=== PATIENT | male | born 1980 | race African-American/Black ===

== ENCOUNTER 2022-03-13 05:01 | Emergency (ER) | payer MEDICARE, MEDICAID ==
[~2022-03-13] VITALS: Ht 167.6 cm; Wt 90.9 kg
[2022-03-13 06:35] VITALS: BP 145/89
== END 2022-03-13 06:36 ==
LOC: ER 05:02
DX: F10.129 Alcohol abuse with intoxication, unspecified (principal); Y90.8 Blood alcohol level of 240 mg/100 ml or more
CPT/HCPCS: 99283

== ENCOUNTER 2022-04-27 19:21 | Emergency (ER) | payer MEDICARE, MEDICAID ==
[~2022-04-27] VITALS: Ht 170.2 cm; Wt 75.9 kg
[~2022-04-27 19:21] MED LIST: DIVA500T9 PO; TRAZ-256 PO; ZIPR20CA12 PO
[2022-04-27 22:54] LABS: URINE AMPHETAMINE SCREEN NEGATIVE (Neg); URINE BARBITUATE SCREEN NEGATIVE (Neg); URINE BENZODIAZEPINES SCREEN NEGATIVE (Neg); URINE CANNABINOID SCREEN POSITIVE (Neg); URINE COCAINE SCREEN NEGATIVE (Neg); URINE METHADONE SCREEN NEGATIVE (Neg); URINE OPIATE SCREEN NEGATIVE (Neg); URINE PHENCYCLIDINE SCREEN NEGATIVE (Neg)
--- NOTE | 2022-04-27 23:01 | NUR ---
Documented assessment reviewed, underwriter mortgage loan agrees with this previous assessment.
[2022-04-27 23:28] LABS: BASOPHILS % (AUTO) 0.4 % (0-1); EOSINOPHILS % (AUTO) 0.2 % (0-6); HEMATOCRIT 38.5 % (42.0-52.0); HEMOGLOBIN 12.8 g/dl (14.0-17.9); LYMPHOCYTES # (AUTO) 2.2 X10'3 (1.1-4.8); LYMPHOCYTES % (AUTO) 25.2 % (21-51); MEAN CORPUSCULAR HEMOGLOBIN 29.2 PG (27.0-31.0); MEAN CORPUSCULAR HGB CONC 33.2 g/dL (33.0-36.5); MEAN CORPUSCULAR VOLUME 87.9 FL (78-98); MEAN PLATELET VOLUME 6.4 FL (7.4-10.4); MONOCYTES # (AUTO) 0.5 X10'3 (0-0.9); MONOCYTES % (AUTO) 6.2 % (2-12); NEUTROPHILS # (AUTO) 5.8 X10'3 (1.8-7.7); PLATELET COUNT 298 X10'3 (140-440); RED BLOOD COUNT 4.38 X10'6 (4.70-6.10); RED CELL DISTRIBUTION WIDTH 13.9 % (11.5-14.5); WHITE BLOOD COUNT 8.6 X10'3 (4.5-11.0)
[2022-04-27 23:41] LABS: ALANINE AMINOTRANSFERASE 32 U/L (12-78); ALBUMIN 3.5 G/DL (3.4-5.0); ALBUMIN/GLOBULIN RATIO 1.1 (1.1-1.5); ALKALINE PHOSPHATASE 63 IU/L (46-116); ANION GAP 6 (8-16); ASPARTATE AMINO TRANSFERASE 19 U/L (10-37); BILIRUBIN,TOTAL 0.3 MG/DL (0.1-1.0); BLOOD UREA NITROGEN 13 MG/DL (7-18); BUN/CREATININE RATIO 11.8 (5.4-32.0); CALCIUM 8.8 MG/DL (8.5-10.1); CHLORIDE 105 MMOL/L (99-107); GLUCOSE 115 MG/DL (70-104); POTASSIUM 3.7 MMOL/L (3.5-5.1); SODIUM 138 MMOL/L (135-145); TOTAL CARBON DIOXIDE 26.8 MMOL/L (24-32); TOTAL PROTEIN 6.8 G/DL (6.4-8.2); eGFR 89 ML/MIN
[2022-04-27 23:52] LABS: ETHANOL < 0.010 GM/DL (0.0-0.010)
--- NOTE | 2022-04-28 05:48 | NUR ---
PT HAD THE CURTAIN CLOSED. CURTAIN WAS OPENED AND PT WAS REMINDED OF THE NEED TO KEEP THE CURTAINS OPEN.
--- NOTE | 2022-04-28 05:57 | NUR ---
pt is on [employer]. he appears to be talking to himself. no apparent needs at this time.
--- NOTE | 2022-04-28 06:45 | NUR ---
Pt resting with eyes closed laying on left side, effortless respirations observed.
[2022-04-28] MEDS ORDERED: ZIPR80CA10 PO (07:56)
[2022-04-28] MEDS ORDERED: TRAZ150T78 PO (07:56)
[2022-04-28] MEDS ORDERED: DIVA-81 PO (07:56)
[2022-04-28] MEDS ORDERED: DIVA500T9 PO (07:56)
--- NOTE | 2022-04-28 08:50 | NUR ---
Pt eating breakfast tray.
--- NOTE | 2022-04-28 11:25 | NUR ---
Pt had taken mattress off gurney and placed on floor. Gurney taken out of room and mattress with linen in room with pt.
--- NOTE | 2022-04-28 11:30 | NUR ---
Keyboard taken out of room as pt placed on ground and using as peddle on top of floor faucet peddles.
--- NOTE | 2022-04-28 11:36 | NUR ---
Pt abulated to restroom with field contact technician.
--- NOTE | 2022-04-28 12:00 | NUR ---
Pt seen by [facility] and [facility] will be continued.
--- NOTE | 2022-04-28 18:30 | NUR ---
PT RESTING IN BED WITH THE GURNEY MATTRESS ON THE FLOOR.
--- NOTE | 2022-04-28 19:30 | NUR ---
PT AMBULATING TO THE BATHROOM WITH SITTER. PT FOLLOWING DIRECTION.
--- NOTE | 2022-04-28 21:00 | NUR ---
PT STANDING UP IN THE ROOM MUMBLING TO HIMSELF. PT REQUIRING REMINDERS FROM SITTER TO STAY IN HIS ROOM.
--- NOTE | 2022-04-28 23:00 | NUR ---
PT ASLEEP ON GURNEY MATTRESS ON THE FLOOR. PT DOES NOT APPEAR TO BE IN DISTRESS. RESPIRATIONS ARE EQUAL AND UNLABORED.
--- NOTE | 2022-04-29 01:57 | NUR ---
PT CONTINUES TO SLEEP ON MATTRESS.
--- NOTE | 2022-04-29 03:05 | NUR ---
Previous assessment reviewed, marketing copywriter agrees with documented assessment.
--- NOTE | 2022-04-29 03:30 | NUR ---
PT IS AWAKE AND WALKED TO THE BATHROOM WITH SITTER. PT RETURNED TO HIS ROOM AND IS NOW TAKING ALL OF THE SHEETS OFF OF HIS MATTRESS. PT ATTEMPTED TO DISROBE BUT FOLLOWED INSTRUCTIONS TO PULL HIS PANTS BACK UP.
--- NOTE | 2022-04-29 05:49 | NUR ---
PT IS CURRENTLY SITTING IN THE CORNER OF HIS ROOM AND YELLING AT VISUAL HALLUCINATIONS. THE PT IS VERY AGGITATED AND VIOLENT. ANY INTERACTION WITH THE PT LEADS TO FURTHER AGGITATION AND UNDIRECTABLE BEHAVIORS. IF THE PTS DOORS ARE ATTEMPTED TO BE OPENED HE WILL BEGIN YELLING ATTEMPTING TO LEAVE THE ROOM. NO VITALS WERE ABLE TO BE OBTAINED ON THIS SHIFT, DUE TO AGGITATION WITH ATTEMPT.
--- NOTE | 2022-04-29 06:57 | NUR ---
Pt currently sleeping comfortably with his face covered w/blanket. Pt laying on a mattress on the floor.
[2022-04-29] MEDS ORDERED: traZODone 150mg tablet PO PRN (07:25)
--- NOTE | 2022-04-29 07:45 | NUR ---
Pt given coffee, juice, milk and grahm crackers till breakfast tray arrives.
--- NOTE | 2022-04-29 08:47 | NUR ---
Pt remains calm and cooperative.
--- NOTE | 2022-04-29 14:49 | NUR ---
Patient's mother visiting him. Patient remain calm at this time.
--- NOTE | 2022-04-29 16:00 | NUR ---
Pt sitting on mattress, pt occasionally gets up and walks about in room. Pt asks to smoke and reminded pt of policy and offered to get order for nicotine patch which pt declines.
--- NOTE | 2022-04-29 17:13 | NUR ---
Pt ambulated to bathroom and back to room. Pt given pitcher of ice water and currently without needs. Pt remains calm and cooperative.
--- NOTE | 2022-04-29 18:22 | NUR ---
Patient awake at this time, requesting beverage, otherwise no other needs verbalized. Patient calm at this time.
--- NOTE | 2022-04-29 19:37 | NUR ---
Patient given various beverages per request. PAtient in jovial mood. No distress. Patient frequently at door interacting with staff, demenous is positive, no inappopriate behavior noted.
--- NOTE | 2022-04-29 20:28 | NUR ---
Wound to right finger cleansed and dressed.
--- NOTE | 2022-04-29 20:39 | NUR ---
Patient given vaseline for lips as requested. Patient denies other needs, patient remains calm and cooperative.
[2022-04-29] MEDS ORDERED: ziprasidone 20mg capsule PO SCH (21:00)
[2022-04-29] MEDS ORDERED: divalproex sodium 500mg tablet.DR PO SCH (21:00)
--- NOTE | 2022-04-29 22:39 | NUR ---
Al from [facility] called in at this time. SPoke with marketing writer. DEtailed report was give at this time and facility will be accepting patient at their facility after 07 on 04/30, Dr. Kc will be the accepting provider. Facility is: [facility] [address] [place] [address] [facility] [id number] Updates should be called to [phone] Receiving facility will arrange transport via their liason.
--- NOTE | 2022-04-29 23:55 | NUR ---
Patient awake, up to RR at this time. Patient requesting warm beverage, this is being prepared at this time.
--- NOTE | 2022-04-30 02:30 | NUR ---
Patient asleep on mattress at this time. No distress noted.
--- NOTE | 2022-04-30 02:59 | NUR ---
Patient awake, up to RR at this time without incident. Patient states he wants a meal tray. Patient informed cafeteria is closed. Patient was given a sandwich.
--- NOTE | 2022-04-30 04:06 | NUR ---
Patient awake at this time, patient informed he is going to [facility]. Patient verbalizes understanding. Patient wants another beverage. THis was provided.
--- NOTE | 2022-04-30 05:24 | NUR ---
Patient is asleep at this time. NO distress noted. BReathing even unlabored.
--- NOTE | 2022-04-30 06:37 | NUR ---
Patient awake, states he wants a sandwich. Patient updated meal tray would be by shortly, patient verbalizes understanding, states this is fine.
--- NOTE | 2022-04-30 07:57 | NUR ---
patient provided additional beverage per request. Patient otherwise calm and reasonably cooperative. Patient wandering in room singing to himself.
--- NOTE | 2022-04-30 09:02 | NUR ---
Patient up to RR at this time. No distress noted. Denies other needs.
--- NOTE | 2022-04-30 09:58 | NUR ---
Patient accepted at [facility]. [facility] will call once they have an ETA for the limousine driver.
[2022-04-30 10:56] VITALS: BP 142/80
--- NOTE | 2022-04-30 11:17 | NUR ---
Patient departs ER with transferring liason. Receiving facility called to update patient leaving now status. Patient took belongings, some belongings sent home with his mom.
== END 2022-04-30 11:21 ==
LOC: ER 19:21
DX: F31.9 Bipolar disorder, unspecified (principal); Z20.822 Contact with and (suspected) exposure to COVID-19; F20.9 Schizophrenia, unspecified; F17.200 Nicotine dependence, unspecified, uncomplicated; Z79.899 Other long term (current) drug therapy
CPT/HCPCS: 36415; 80053; 80305; 80320; 85025; 87811; 99285